=== PATIENT | female | born 1995 | race African-American/Black ===

== ENCOUNTER 2016-07-04 09:11 | Emergency (ER) | payer OTHER ==
[2016-07-04 09:14] VITALS: BP 130/85; PULSE 88; TEMP 98.1; BMI 18.4
--- NOTE | 2016-07-04 09:51 | PDOC ---
History of Present Illness - General Chief Complaint: Sore Throat Stated Complaint: SORE THROAT Time Seen by Provider: 07/04/16 09:40 History Source: Patient Exam Limitations: No Limitations - History of Present Illness Initial Comments: 07/04/16 09:46 21 yr female with one week sore throat getting worse. no fever or chills, no abd pain. no sick contacts. Past History - Past Medical History Allergies/Adverse Reactions: Allergies Allergy/AdvReac Type Severity Reaction Status Date / Time No Known Allergies Allergy Verified 07/04/16 09:14 Home Medications: Ambulatory Orders Azithromycin [Zithromax 250mg Tablets -] 250 mg PO UTDICT #6 tab 07/04/16 Other medical history: denies - Psycho/Social/Smoking Cessation Hx Suicidal Ideation: No Smoking History: Never smoked Information on smoking cessation initiated: No Hx Alcohol Use: No Drug/Substance Use Hx: No Substance Use Type: None Review of Systems - Review of Systems Able to Perform ROS?: Yes Is the patient limited Vietnamese proficient: No Constitutional: No: Symptoms Reported HEENTM: Yes: Symptoms Reported *Physical Exam - Vital Signs Last Vital Signs Temp Pulse Resp BP Pulse Ox 98.1 F 88 18 130/85 100 07/04/16 09:13 07/04/16 09:13 07/04/16 09:13 07/04/16 09:13 07/04/16 09:13 - Physical Exam General Appearance: Yes: Nourished, Appropriately Dressed HEENT: positive: EOMI, [place], Pharyngeal Erythema, Tonsillar Erythema Neck: positive: Lymphadenopathy (R), Lymphadenopathy (L). negative: Rigidity Respiratory/Chest: positive: Lungs Clear, Normal Breath Sounds Cardiovascular: positive: Regular Rhythm, Regular Rate Neurologic: positive: Fully Oriented, Alert, Normal Mood/Affect, Motor Strength 5/5 Medical Decision Making - Medical Decision Making 07/04/16 09:47 cc: sore throat , lymphadenopathy non toxic muffled voice no evidence of [facility] will treat for strep pharyngitis 07/04/16 09:51 *DC/Admit/Observation/Transfer Diagnosis at time of Disposition: Pharyngitis Qualifiers: Pharyngitis/tonsillitis etiology: unspecified etiology Qualified Code(s): J02.9 - Acute pharyngitis, unspecified - Prescriptions Prescriptions: Azithromycin [Zithromax 250mg Tablets -] 250 mg PO UTDICT #6 tab - Referrals Referrals: Eliezer Petersen MD [Staff Physician] - - Patient Instructions Additional Instructions: gargle with warm salt water 4-5 times a day take motrin (over the counter advil, ibuprofen or motrin 600mg every 6hrs ) for pain take the prescribed Zpack antibiotics as directed follow with the ENT if symptoms worsen or persist
== END 2016-07-04 10:00 | disposition home or self-care (01) ==
LOC: JERFT 09:11
DX: J02.9 Acute pharyngitis, unspecified (principal)
CPT/HCPCS: 99281-25

== ENCOUNTER 2016-09-27 12:40 | Emergency (ER) | payer OTHER ==
[2016-09-27 13:07] VITALS: BP 119/75; PULSE 80; TEMP 98.6; BMI 18.4
[2016-09-27] MEDS ORDERED: DEXAMETHASONE SOD PHOSPHATE 10 MG/1 ML VIAL IM ONE (13:12)
[2016-09-27] MEDS ORDERED: DEXAMETHASONE SOD PHOSPHATE 10 MG/1 ML VIAL ONE (13:46)
--- NOTE | 2016-09-27 14:01 | PDOC ---
History of Present Illness - General Chief Complaint: Sore Throat Stated Complaint: SWOLLEN UVULA Time Seen by Provider: 09/27/16 13:04 History Source: Patient Exam Limitations: No Limitations - History of Present Illness Timing/Duration: reports: unsure Severity: Yes: mild Presenting Symptoms: Yes: fever, sore throat, painful swallowing. No: runny nose, persistent cough, diarrhea, vomiting Past History - Past History Allergies/Adverse Reactions: Allergies No Known Allergies Allergy (Verified 09/27/16 12:44) Home Medications: Ambulatory Orders Penicillin V Potassium [Pen Vee K -] 500 mg PO TID #30 tablet 09/27/16 - Social History Smoking Status: Never smoked Review of Systems - Review of Systems Constitutional: Yes: Fever, Malaise HEENTM: Yes: Recent change in vision, Nose Pain, Nose Congestion. No: Nose Bleeding Respiratory: No: Symptoms reported, Cough, Stridor, Wheezing Cardiac (ROS): No: Symptoms Reported ABD/GI: No: Symptoms Reported : No: Symptoms Reported *Physical Exam - Vital Signs Last Vital Signs Temp Pulse Resp BP Pulse Ox 98.6 F 80 18 119/75 100 09/27/16 12:45 09/27/16 12:45 09/27/16 12:45 09/27/16 12:45 09/27/16 12:45 - Physical Exam General Appearance: Yes: Appropriately Dressed, Apparent Distress HEENT: positive: TMs Normal, Other (mild injected ulvula; red posterior) Neck: positive: Supple, Lymphadenopathy (R), Lymphadenopathy (L). negative: Tender Respiratory/Chest: positive: Chest Tender, Lungs Clear, Accessory Muscle Use Cardiovascular: positive: Regular Rhythm, Regular Rate ED Treatment Course - ADDITIONAL ORDERS Additional order review: Laboratory Results 09/27/16 13:00 Urine HCG, Qual Negative 09/27/16 13:10 Group A Strep Rapid Antigen - Final Throat Medical Decision Making - Medical Decision Making 09/27/16 14:06 10mg IM decadron given; also pcn vk for reoccuring strep; had same in june *DC/Admit/Observation/Transfer Diagnosis at time of Disposition: Strep sore throat, Uvulitis - Discharge Dispostion Admit: No - Prescriptions Prescriptions: Penicillin V Potassium [Pen Vee K -] 500 mg PO TID #30 tablet - Patient Instructions Additional Instructions: gargle; advil 400mg for pain; return to ED in 1 days for reevaluation - Post Discharge Activity Work/School Note: Back to Work
== END 2016-09-27 14:08 | disposition home or self-care (01) ==
LOC: JERFT 12:40 → JER 12:40 → JERFT 14:08
PROC: 3E023GC Introduction of Other Therapeutic Substance into Muscle, Percutaneous Approach (ICD-10-PCS; principal; 2016-09-27)
DX: J02.0 Streptococcal pharyngitis (principal)
CPT/HCPCS: 84703; 87070; 87077; 87430; 99281-25

== ENCOUNTER 2016-09-28 13:34 | Emergency (ER) | payer OTHER ==
[2016-09-28 13:38] VITALS: BP 120/71; PULSE 81; TEMP 98.4; BMI 17.2
== END 2016-09-28 15:25 | disposition left against medical advice (07) ==
LOC: JERFT 13:34
DX: Z53.21 Procedure and treatment not carried out due to patient leaving prior to being seen by health care provider (principal)
CPT/HCPCS: 99281-25